=== PATIENT | female | born 1995 | race Caucasian/White ===

== ENCOUNTER 2017-09-29 17:08 | Emergency (ER) | payer OTHER ==
[~2017-09-29] VITALS: Ht 165.1 cm; Wt 51.5 kg
[~2017-09-29 17:08] MED LIST: ADDE10 PO; AMBI10TA PO; CLON0.2T PO; LAMO100T PO; LISD60 PO
[2017-09-29 17:19] VITALS: BP 124/84; PULSE 103; RESP 16; TEMP 99.3; O2SAT 99
[2017-09-29 17:51] LABS: BILIRUBIN, URINE NEG (NEG); BLOOD, URINE NEG (NEG); GLUCOSE,URINE NEG (NEG); KETONE, URINE NEG (NEG); NITRITE,URINE NEG (NEG); URINE LEUKOCYTE ESTERASE NEG (NEG)
[2017-09-29 17:54] LABS: URINE COLOR YELLOW (YELLW/STRAW)
[2017-09-29 17:57] LABS: WBC, URINE 0-2 /hpf (0-5)
--- NOTE | 2017-09-29 18:25 | PD ---
HPI Chief Complaint: Complaint Time Seen by Provider: 18:07 Travel History International Travel<30 days: No Contact w/Intl Traveler<30days: No Traveled to known affect area: No History of Present Illness HPI This is a 22-year-old female here for evaluation of urinary urgency and dysuria and concern of UTI. SHe denies fever or chills. Three-day history of mild intermittent dysuria. Symptoms severity is mild. No aggravating or alleviating factors PFSH Past Medical History ADHD: Yes Bipolar Disorder: Yes Tetanus Vaccination: > 5 Years Influenza Vaccination: No ?: Not LMP: 09/19/17 Past Surgical History Surgical History: No Previous Surgery Social History Alcohol Use: Yes (OCCASIONAL) Tobacco Use: Yes (3-4 CIGARETTES PER DAY OR LESS) Substance Use: No Allergies-Medications (Allergen,Severity, Reaction): Coded Allergies: gluten (Verified Allergy, Intermediate, 09/29/17) lactose (Verified Allergy, Intermediate, 09/29/17) cat dander (Verified Allergy, Unknown, 09/29/17) dog dander (Verified Allergy, Unknown, 09/29/17) Reported Meds & Prescriptions Reported Meds & Active Scripts Active Vyvanse (Lisdexamfetamine Dimesylate) 60 Mg Cap 60 Mg PO DAILY Vyvanse (Lisdexamfetamine Dimesylate) 60 Mg Cap 60 Mg PO DAILY Lamotrigine 100 Mg Tab 100 Mg PO BID Review of Systems General / Constitutional: No: Fever Genitourinary: Positive: Urgency, Dysuria Musculoskeletal: No: Pain Physical Exam Narrative GENERAL: Alert well-appearing 22-year-old female SKIN: Warm and dry. No rash HEAD: Normocephalic. EYES: No injection or drainage. NECK: Supple GASTROINTESTINAL: Abdomen soft, non-tender, nondistended. BACK: No CVA tenderness. Data Data Last Documented VS Vital Signs Date Time Temp Pulse Resp B/P (MAP) Pulse Ox O2 Delivery O2 Flow Rate FiO2 09/29/17 17:19 99.3 103 16 124/84 (97) 99 Orders Orders Urinalysis - C+S If Indicated (09/29/17 17:28) Ed Urine Pregnancytest Poc (09/29/17 17:28) Labs Laboratory Tests Test 09/29/17 17:35 Urine Collection Type CLEAN CATCH Urine Color YELLOW Urine Turbidity CLEAR Urine pH 7.0 Urine Specific [place] 1.007 Urine Protein NEG mg/dL Urine Glucose (UA) NEG mg/dL Urine Ketones NEG mg/dL Urine Occult Blood NEG Urine Nitrite NEG Urine Bilirubin NEG Urine Leukocyte Esterase NEG Urine WBC 0-2 /hpf Microscopic Urinalysis Comment CULT NOT INDICATED Urine Collection Time 1735 [facility] Medical Decision Making Medical Screen Exam Complete: Yes Emergency Medical Condition: Yes Differential Diagnosis UTI, pyelonephritis, vaginitis Narrative Course This is a 22-year-old female here with intermittent dysuria and urinary urgency for 3 days. She was concerned of UTI. Her vital signs are stable. UA is negative for infection. She denies vaginal discharge or irritation. She was instructed to push fluids and follow-up with her primary doctor. Diagnosis Primary Impression: Dysuria Referrals: Primary Care Physician Additional Instructions: Follow-up the primary doctor Disposition: 01 DISCHARGE HOME Condition: Stable Lexi Love Sep 29, 2017 18:25
== END 2017-09-29 18:32 | disposition home or self-care (01) ==
LOC: PHEFT 17:08
DX: R30.0 Dysuria (principal); F90.9 Attention-deficit hyperactivity disorder, unspecified type; F31.9 Bipolar disorder, unspecified; F17.210 Nicotine dependence, cigarettes, uncomplicated; Z79.899 Other long term (current) drug therapy
CPT/HCPCS: 81001; 84703; 99283